=== PATIENT | male | born 1970 | race Caucasian/White ===

== ENCOUNTER 2016-09-02 16:00 | Outpatient (RCR) | payer OTHER ==
[~2016-09-02 16:00] MED LIST: AFRI0.056; ATEN50TA2 PO; BENA25CA2 PO; DIGO0.25 PO; ELIQ5TAB PO; HYDR50TAB PO; INVO300T PO; JANU100T PO; METF850T PO
== END 2016-09-06 ==
LOC: M OUTALCOH 16:00
PROVIDERS: ATTEND Psychiatry & Neurology Psychiatry
DX: F10.10 Alcohol abuse, uncomplicated (principal)

== ENCOUNTER 2016-09-30 16:00 | Outpatient (RCR) | payer OTHER | END 2016-10-04 | LOC: M OUTALCOH 16:00 | PROVIDERS: ATTEND Psychiatry & Neurology Psychiatry | DX: F10.10 Alcohol abuse, uncomplicated (principal) ==

== ENCOUNTER 2016-10-28 16:00 | Outpatient (RCR) | payer OTHER | END 2016-11-04 | LOC: M OUTALCOH 16:00 | PROVIDERS: ATTEND Psychiatry & Neurology Psychiatry | DX: F10.10 Alcohol abuse, uncomplicated (principal) ==

== ENCOUNTER 2016-11-25 16:00 | Outpatient (RCR) | payer OTHER | END 2016-12-04 | LOC: M OUTALCOH 16:00 | PROVIDERS: ATTEND Psychiatry & Neurology Psychiatry | DX: Z13.9 Encounter for screening, unspecified (principal); F10.10 Alcohol abuse, uncomplicated ==

== ENCOUNTER 2016-12-29 16:00 | Outpatient (RCR) | payer OTHER | END 2017-01-04 | LOC: M OUTALCOH 16:00 | PROVIDERS: ATTEND Psychiatry & Neurology Psychiatry | DX: Z13.9 Encounter for screening, unspecified (principal); F10.10 Alcohol abuse, uncomplicated ==

== ENCOUNTER → 2017-01-12 | Outpatient (CLI) | payer OTHER ==
[2017-01-12 17:25] LABS: ALBUMIN 4.1 GM/DL (3.2-5.2); ALBUMIN/GLOBULIN RATIO 1.03 (1.00-1.93); ALKALINE PHOSPHATASE 63 U/L (45-117); ALT/SGPT 66 U/L (12-78); ANION GAP 6 MEQ/L (8-16); AST/SGOT 32 U/L (15-37); BILIRUBIN,TOTAL 0.4 MG/DL (0.2-1.0); BLOOD UREA NITROGEN 10 MG/DL (7-18); CALCIUM LEVEL 9.4 MG/DL (8.5-10.1); CARBON DIOXIDE LEVEL 26 MEQ/L (21-32); CHLORIDE LEVEL 104 MEQ/L (98-107); CHOLESTEROL LEVEL 178 MG/DL (<200); CREATININE FOR GFR 0.72 MG/DL (0.70-1.30); GLOMERULAR FILTRATION RATE > 60.0 (>60); GLUCOSE, FASTING 182 MG/DL (70-105); POTASSIUM SERUM 4.2 MEQ/L (3.5-5.1); SODIUM LEVEL 136 MEQ/L (136-145); TOTAL PROTEIN 8.1 GM/DL (6.4-8.2); TRIGLYCERIDES LEVEL 261 MG/DL (<150)
== END ==
LOC: M WUC 12:33
PROVIDERS: ATTEND Nurse Practitioner Family
DX: E55.9 Vitamin D deficiency, unspecified (principal); E78.5 Hyperlipidemia, unspecified

== ENCOUNTER 2017-01-26 10:02 | Outpatient (RCR) | payer OTHER ==
[~2017-01-26 10:02] MED LIST changes: -METF850T PO; +METF850T4 PO
== END 2017-02-03 ==
LOC: M OUTALCOH 10:02
PROVIDERS: ATTEND Psychiatry & Neurology Psychiatry
DX: Z13.9 Encounter for screening, unspecified (principal); F10.10 Alcohol abuse, uncomplicated

== ENCOUNTER 2017-02-27 10:50 | Outpatient (RCR) | payer OTHER | END 2017-03-06 | LOC: M OUTALCOH 10:50 | PROVIDERS: ATTEND Psychiatry & Neurology Psychiatry | DX: F10.10 Alcohol abuse, uncomplicated (principal) ==

== ENCOUNTER 2017-04-03 16:00 | Outpatient (RCR) | payer OTHER | END 2017-04-06 | LOC: M OUTALCOH 16:00 | PROVIDERS: ATTEND Psychiatry & Neurology Psychiatry | DX: F10.10 Alcohol abuse, uncomplicated (principal) ==

== ENCOUNTER 2017-04-12 16:00 | Outpatient (RCR) | payer OTHER | END 2017-05-06 | LOC: M OUTALCOH 16:00 | PROVIDERS: ATTEND Psychiatry & Neurology Psychiatry | DX: F10.10 Alcohol abuse, uncomplicated (principal) ==

== ENCOUNTER → 2017-11-21 | Outpatient (REF) | payer OTHER | LOC: M LAB REF 19:15 | DX: J02.9 Acute pharyngitis, unspecified (principal) | CPT/HCPCS: 87081 ==

== ENCOUNTER → 2018-12-04 | Outpatient (CLI) | payer OTHER ==
--- NOTE | 2018-12-05 03:16 | REP ---
Clinical: Right ankle pain. Technique: AP, lateral, bilateral oblique views of the right ankle. Findings: Marked diffuse soft tissue swelling is appreciated. Corticated loose bodies inferior to the distal fibula and medial malleolus may represent old fracture fragments. No obvious definite acute fracture is appreciated however correlation is recommended. Ankle mortise appears intact. Impression: Diffuse marked swelling. Findings suggest old fracture fragments. A subtle acute nondisplaced fracture of the distal fibula cannot definitively be excluded based on oblique image (3 of 4). Electronically Signed by Rich Craven MD 12/05/2018 03:07 A
== END ==
LOC: M ADAMS 15:49
PROVIDERS: ATTEND Physician Assistant Medical
DX: M25.571 Pain in right ankle and joints of right foot (principal)

== ENCOUNTER → 2019-04-24 | Outpatient (CLI) | payer OTHER ==
--- NOTE | 2019-04-25 02:34 | REP ---
Clinical: Trauma. Technique: AP, lateral, bilateral oblique and sunrise views left knee . Findings: Marked anterior/prepatellar soft tissue swelling is appreciated with suspected prepatellar collection/hematoma. No obvious acute fracture or dislocation. No significant degenerative changes. Impression: Marked prepatellar soft tissue swelling. No obvious acute fracture. Electronically Signed by Rich Craven MD 04/25/2019 02:25 A
== END ==
LOC: M ADAMS 16:29
PROVIDERS: ATTEND Physician Assistant
DX: M25.462 Effusion, left knee (principal); S80.02XA Contusion of left knee, initial encounter; X58.XXXA Exposure to other specified factors, initial encounter; Y92.9 Unspecified place or not applicable

== ENCOUNTER 2019-12-21 12:04 | Inpatient (IN) | payer OTHER ==
[~2019-12-21] VITALS: Ht 180.3 cm; Wt 127.9 kg
[2019-12-21] MEDS: ASPIRIN 81 MG ENTERIC TAB PO SCH (09:00)
[2019-12-21] MEDS ORDERED: LOSA100T50 PO (12:14)
[2019-12-21] MEDS ORDERED: MELO7.5T35 PO (12:21)
[2019-12-21] MEDS ORDERED: GLYB25TA PO (12:21)
[2019-12-21 12:42] LABS: BASO # 0.1 10^3/uL (0.0-0.2); BASO % 1.3 % (0.0-1.0); EOS # 0.1 10^3/uL (0.0-0.5); HEMATOCRIT 47.3 % (42.0-52.0); HEMOGLOBIN 15.9 g/dl (13.5-17.5); LYMPH # 1.4 10^3/uL (1.5-5.0); LYMPH % 25.1 % (24.0-44.0); MEAN CORPUSCULAR HEMOGLOBIN 30.7 pg (27.0-33.0); MEAN CORPUSCULAR HGB CONC 33.6 g/dl (32.0-36.5); MEAN CORPUSCULAR VOLUME 91.3 fl (80.0-96.0); MONO # 0.9 10^3/uL (0.0-0.8); MONO % 16.4 % (0.0-5.0); PLATELET COUNT, AUTOMATED 190 10^3/uL (150-450); RED BLOOD COUNT 5.18 10^6/uL (4.30-6.10); WHITE BLOOD COUNT 5.5 10^3/uL (4.0-10.0)
[2019-12-21] MEDS: METOPROLOL 5 MG/5 ML VIAL IV SCH ×3 (12:42→12:53)
[2019-12-21] MEDS ORDERED: METOPROLOL TART 50 MG TAB PO ONE (13:00)
[2019-12-21 13:07] LABS: BLOOD UREA NITROGEN 8 MG/DL (7-18); CALCIUM LEVEL 10.3 MG/DL (8.5-10.1); CARBON DIOXIDE LEVEL 28 MEQ/L (21-32); CHLORIDE LEVEL 100 MEQ/L (98-107); CK-MB VALUE MASS 6.2 NG/ML (<3.6); CPK CREATINE PHOSPHOKINASE 169 U/L (39-308); CREATININE FOR GFR 0.84 MG/DL (0.70-1.30); GLOMERULAR FILTRATION RATE > 60.0 (>60); GLUCOSE, FASTING 280 MG/DL (70-100); MB/CK RELATIVE INDEX 3.67 (< OR =4); POTASSIUM SERUM 3.9 MEQ/L (3.5-5.1); SODIUM LEVEL 138 MEQ/L (136-145)
--- NOTE | 2019-12-21 13:11 | REP ---
Clinical: Chest pain . Comparison: 05/17/2016 . Findings: The mediastinum and cardiac silhouette are stable and within normal limits for portable technique. The lung andrade are clear without acute consolidation, effusion, or pneumothorax. Skeletal structures are intact. Impression: No focal consolidation or effusion. Electronically Signed by Rich Craven MD 12/21/2019 01:03 P
[2019-12-21 13:32] LABS: ETHYL ALCOHOL (ETHANOL) < 0.003 % (0.000-0.010)
[2019-12-21 13:39] LABS: MAGNESIUM LEVEL 1.5 MG/DL (1.8-2.4)
[2019-12-21] MEDS ORDERED: MAG SULF 1GM/100ML (MAG RUN) 1 GM in IV 1 EA IV ONE ×2 (13:45→14:45)
[2019-12-21] MEDS ORDERED: APIXABAN 5 MG TAB (ELIQUIS) PO ONE (14:00)
[2019-12-21] MEDS ORDERED: diltiaZEM 125 MG in NS 100 ML IV SCH (14:00)
[2019-12-21] MEDS ORDERED: DIPH25CA32 PO (14:36)
[2019-12-21] MEDS ORDERED: ELIQ5TAB PO (14:36)
[2019-12-21] MEDS ORDERED: ATEN50TA2 PO (14:36)
[2019-12-21] MEDS ORDERED: 12 H0.056 (14:38)
[2019-12-21 15:25] LABS: CK-MB VALUE MASS 5.1 NG/ML (<3.6); MB/CK RELATIVE INDEX 3.4 (< OR =4); TROPONIN I 2.23 NG/ML (< 0.10)
[2019-12-21] MEDS ORDERED: GLUCOSE 4GM CHEW TABLET PO PRN (16:00)
[2019-12-21] MEDS ORDERED: GLUCAGON INJ 1MG VIAL SC PRN (16:00)
[2019-12-21] MEDS ORDERED: DEXTROSE 50% 50 ML SYRINGE IV PRN (16:00)
[2019-12-21] MEDS ORDERED: AMIODARONE HCL 150 MG in IV 1 EA IV ONE (16:00)
[2019-12-21] MEDS ORDERED: AMIODARONE HCL 360 MG in IV 1 EA IV SCH (16:30)
[2019-12-21] MEDS ORDERED: diphenhydrAMINE 50MG CAP PO PRN (16:45)
[2019-12-21 17:05] VITALS: BP 152/94
--- NOTE | 2019-12-21 17:10 | HPE ---
DATE OF ADMISSION: 12/12/2019 CHIEF COMPLAINT: Palpitations. HISTORY OF PRESENT ILLNESS: This is a 49-year-old obese male with body mass index (BMI) of 39.7, obstructive sleep apnea on continuous positive airway pressure (CPAP), metabolic syndrome with hypertension, diabetes with prior history of atrial fibrillation, lost to followup and not compliant with his medications, presented after waking up at 02:30 this morning not feeling "good," accompanied with feeling sick to his stomach, nausea and vomiting times three. The patient describes a soreness in his chest from vomiting. He denied any lightheadedness, dizziness, difficulty ambulating, but did complain of palpitations now and again. He usually misses his evening doses occasionally about once or twice a week and did not take it today. He had stopped drinking energy drinks but does have Mountain Dews occasionally. He drinks caffeinated iced tea sometimes. After the four episodes of vomiting, the patient went back to bed but since his symptoms were persistent, it prompted him to come this morning. At around 09:00 to 10:00 a.m., things got a little bit worse. He then finished up everything he needed to do at home and decided to come at noontime to the emergency room. In the emergency room (ER), he was found to be in atrial flutter with rapid ventricular rate of 141 with peak rate of about 160. The patient was given 50 mg of metoprolol times one with no improvement. He was given 5 mg IV metoprolol every five minutes with no improvement. At 01:00 o'clock, the patient was given diltiazem 20 mg IV bolus with no improvement and was then given 25 mg stat and started on a Cardizem drip. The patient continues to have a rate of 130-140. Dr. Mac, chip mixing machine operator on-call, was consulted by Dr. Carty, emergency room physician, who recommended that the patient receive amiodarone. The patient did receive another 15 mg IV diltiazem bolus despite being on a drip with no improvement. Systolic blood pressure remains high at 154/83 with presenting blood pressure of 225/135. The patient denied any shortness of breath. No near syncopal episodes. The patient has been noncompliant with his medications. Despite having a troponin increase from 1.9 to 2.23, the patient remained chest pain free. EKG did not show any ST elevations and the patient decided to stay at [facility] for rate control and further treatment. He was found to have a slightly low magnesium of 1.5 which was subsequently supplemented. Chest x-ray showed no acute cardiopulmonary process. The patient's COVID-19 PCR is still pending. He remains in the emergency room. Ethyl alcohol level is less than 0.03. PAST MEDICAL HISTORY: 1. Obesity, body mass index (BMI) of 39.7. 2. Obstructive sleep apnea on continuous positive airway pressure (CPAP). 3. Hypertension. 4. Diabetes. 5. Prior history of atrial fibrillation with rapid ventricular response (RVR). 6. Medical noncompliance. ALLERGIES: NAPROSYN. PAST SURGICAL HISTORY: 1. Carpal tunnel repair. 2. Back surgery due to herniated disc. SOCIAL HISTORY: Previously smoked cigarettes, a pack a day, quit about 15 years ago. He still drinks beer, two to about five beers about 2-3 times a week. 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 HOME MEDICATIONS: - Eliquis 5 mg twice a day - atenolol 50 mg twice a day - Benadryl 50 mg every six hours as needed for allergies - glyburide one tablet by mouth daily - losartan 100 mg daily - meloxicam one tablet daily - metformin 850 twice a day - oxymetazoline one spray daily as needed for allergies - Januvia 100 mg daily - Invokana 300 mg daily REVIEW OF SYSTEMS: Per history of present illness (HPI), 12-point system otherwise negative. FAMILY HISTORY: The patient's mother age 58 with lung cancer. The patient had been a heavy smoker. Father at the age of 72 last year with coronary artery disease (CAD), myocardial infarction ([place]), and diabetes. One sister a year older than he is, unknown medical problems. The patient has not spoken to her since their father . PHYSICAL EXAMINATION: Temperature 97.4, pulse 133, respiratory rate 17, blood pressure 161/90, 95% on room air. Generally, the patient is an obese male. The patient is awake, alert, and oriented times three. No facial asymmetry. Tongue is midline. No cyanosis. No icterus or jaundice. Unable to assess for jugular venous distention (JVD), thick neck. Lungs are clear to auscultation. No wheezing, rales, or rhonchi. Heart is tachycardic. Heart: S1, S2, irregularly irregular. No murmurs noted. Abdomen is obese, soft, nontender, nondistended. Positive bowel sounds times four quadrants. Extremities: No clubbing, cyanosis, or any pitting edema. EKG: Atrial flutter, ventricular rate of 141, nonspecific ST/T wave changes. LABORATORY DATA: White count 5.5, hemoglobin 15, hematocrit 47, platelet count 190, 55% neutrophils. TSH 2.05. Sodium 138, potassium 3.9, chloride 100, bicarbonate 28, BUN 8, creatinine 0.84, glucose 280, calcium 10.3, magnesium of 1.5, total CK 169, MB fraction 6.2, relative index 3.67, troponin 1.90, repeat troponin is 2.23, MB fraction is 5.1, total CK of 150. IMAGING STUDIES: Chest x-ray: No acute cardiopulmonary process. No focal consolidation or effusion. ASSESSMENT AND PLAN: This is a 49-year-old obese male with body mass index (BMI) of 39.7, obstructive sleep apnea (BILLY) on continuous positive airway pressure (CPAP), hypertension, diabetes, carpal tunnel repair, atrial fibrillation, noncompliance with his medications, presents to the emergency room with complaints of nausea, vomiting, palpitations, found to be in atrial flutter with rapid ventricular response. The patient had received multiple doses of diltiazem, metoprolol with no improvement, and currently on amiodarone. 1. Atrial flutter with rapid ventricular response. The patient will be admitted to the telemetry unit, placed on amiodarone drip for the next 24 hours. Cardiology has been consulted and a stat echocardiogram has been ordered. The patient's cardiac markers are consistent with tachycardia-induced injury with a type 2 [id number] myocardial infarction which is demand mediated. The patient will be checked with serial cardiac markers every six hours. Monitor for any ischemic symptoms. We will defer to cardiology if the patient requires transfer to [place] for coronary angiogram if suspicion for coronary artery disease and acute infarct with acute coronary syndrome remains high. 2. Hypomagnesemia, has been repleted. Telemetry will be continued to monitor for nonsustained ventricular tachycardia or premature ventricular contractions (PVCs). 3. Hypertensive urgency. The patient's blood pressure improved on metoprolol, IV metoprolol, as well as diltiazem. He will be resumed on his home dose of lisinopril. 4. Diabetes. The patient is on a consistent-carbohydrate diet, two-gram sodium diet with fingersticks every six hours, and hypoglycemic protocol. His oral hyperglycemic medications will be held for now. 5. Deep vein thrombosis (DVT) prophylaxis, on chronic Eliquis. 6. Code status. Full code. 7. Obstructive sleep apnea. Resume on home CPAP. ROOSE[place]ELT
[2019-12-21] MEDS: HumaLOG INSULIN (NovoLOG) PER UNIT SC SCH (17:21)
[2019-12-21] MEDS: LOSARTAN 50MG TABLET PO SCH (17:22)
[2019-12-21] MEDS ORDERED: SLF 3 ML SYR IV PRN (18:00)
[2019-12-21 18:06] LABS: IONIZED CALCIUM 4.6 MG/DL (4.5-5.3)
[2019-12-21 18:46] LABS: CK-MB VALUE MASS 4.2 NG/ML (<3.6); MAGNESIUM LEVEL 1.8 MG/DL (1.8-2.4); MB/CK RELATIVE INDEX 3.23 (< OR =4); TROPONIN I 2.73 NG/ML (< 0.10)
[2019-12-21] MEDS ORDERED: NITROGLYCERIN 0.3 MG SUBL TAB SL PRN (19:00)
[2019-12-21 20:00] VITALS: BP 182/102
[2019-12-21] MEDS ORDERED: METOPROLOL 5 MG/5 ML VIAL IV STA ×2 (20:34→23:42)
[2019-12-21] MEDS ORDERED: HumaLOG INSULIN (NovoLOG) PER UNIT SC SCH (21:00)
[2019-12-21] MEDS ORDERED: ATORVASTATIN 20 MG TAB PO SCH (21:00)
[2019-12-21] MEDS ORDERED: APIXABAN 5 MG TAB (ELIQUIS) PO SCH (21:00)
[2019-12-21 21:45] VITALS: BP 158/98
[2019-12-21] MEDS: SLF 3 ML SYR IV SCH (22:05)
[2019-12-21] MEDS: AMIODARONE HCL 360 MG in IV 1 EA IV SCH (23:58)
[2019-12-21 23:59] LABS: IONIZED CALCIUM 4.6 MG/DL (4.5-5.3)
[2019-12-22] VITALS (7 sets, daily range): BP systolic 140–178; BP diastolic 90–98
[2019-12-22] MEDS: METOPROLOL TART 50 MG TAB PO SCH ×2 (00:09→05:59)
[2019-12-22 00:29] LABS: BLOOD UREA NITROGEN 11 MG/DL (7-18); CARBON DIOXIDE LEVEL 28 MEQ/L (21-32); CHLORIDE LEVEL 100 MEQ/L (98-107); CPK CREATINE PHOSPHOKINASE 118 U/L (39-308); CREATININE FOR GFR 0.73 MG/DL (0.70-1.30); GLOMERULAR FILTRATION RATE > 60.0 (>60); GLUCOSE, FASTING 212 MG/DL (70-100); MAGNESIUM LEVEL 1.7 MG/DL (1.8-2.4); MB/CK RELATIVE INDEX 2.54 (< OR =4); PHOSPHORUS LEVEL 3.5 MG/DL (2.5-4.9); POTASSIUM SERUM 3.6 MEQ/L (3.5-5.1); SODIUM LEVEL 137 MEQ/L (136-145); TROPONIN I 2.41 NG/ML (< 0.10)
[2019-12-22] MEDS ORDERED: MAG SULF 1GM/100ML (MAG RUN) 1 GM in IV 1 EA IV ONE (01:00)
[2019-12-22] MEDS ORDERED: FUROSEMIDE 20MG/2ML VIAL (J1940) IV ONE (01:15)
--- NOTE | 2019-12-22 04:44 | IPNPDOC ---
Text Note Date of Service The patient was seen on 12/22/19. NOTE Was called by nursing with c/f persistent Aflutter with RVR despite amiodarone gtt and metop 50Q6. I called Dr. Mac whom on our discussion recommended giving dilt 10 IV x 2 while continuing the amio gtt and metop 50Q6, as well as stopping his eliquis and to start heparin gtt in 6 hours without a bolus with plan for likely transfer to [place] for catheterization. VS,Fishbone, I+O VS, Fishbone, I+O Laboratory Tests 12/21/19 12:24 12/21/19 23:49 Vital Signs Date Time Temp Pulse Resp B/P (MAP) Pulse Ox O2 Delivery O2 Flow Rate FiO2 12/22/19 01:45 156/96 (116) 12/22/19 00:09 142 12/22/19 00:00 97.9 18 97 Room Air I&O- Last 24 Hours up to 6 AM 12/22/19 06:00 Intake Total 622.5 ml Output Total 1500 ml Balance -877.5 ml ROSETTA MITCHELL MD December 22, 2019 04:44
[2019-12-22] MEDS: SLF 3 ML SYR IV SCH (05:59)
[2019-12-22 06:05] LABS: HEMATOCRIT 46.4 % (42.0-52.0); HEMOGLOBIN 16.1 g/dl (13.5-17.5); MEAN CORPUSCULAR HEMOGLOBIN 31.8 pg (27.0-33.0); MEAN CORPUSCULAR HGB CONC 34.7 g/dl (32.0-36.5); MEAN CORPUSCULAR VOLUME 91.5 fl (80.0-96.0); PLATELET COUNT, AUTOMATED 170 10^3/uL (150-450); RED BLOOD COUNT 5.07 10^6/uL (4.30-6.10); WHITE BLOOD COUNT 5.9 10^3/uL (4.0-10.0)
[2019-12-22 06:14] LABS: HEMOGLOBIN A1c 8.1 %
[2019-12-22 06:28] LABS: BLOOD UREA NITROGEN 10 MG/DL (7-18); CALCIUM LEVEL 8.6 MG/DL (8.5-10.1); CARBON DIOXIDE LEVEL 28 MEQ/L (21-32); CHLORIDE LEVEL 97 MEQ/L (98-107); CHOLESTEROL LEVEL 225 MG/DL (<200); CHOLESTEROL RISK RATIO 5.487 (<5); CREATININE FOR GFR 0.68 MG/DL (0.70-1.30); GLOMERULAR FILTRATION RATE > 60.0 (>60); GLUCOSE, FASTING 225 MG/DL (70-100); HDL CHOLESTEROL 41 MG/DL (>40); LDL CHOLESTEROL 133 MG/DL (<100); MAGNESIUM LEVEL 1.8 MG/DL (1.8-2.4); NON-HDL-C 184 MG/DL; POTASSIUM SERUM 3.3 MEQ/L (3.5-5.1); SODIUM LEVEL 133 MEQ/L (136-145); TRIGLYCERIDES LEVEL 254 MG/DL (<150)
[2019-12-22 06:29] LABS: CK-MB VALUE MASS 2.2 NG/ML (<3.6); MB/CK RELATIVE INDEX 1.95 (< OR =4)
--- NOTE | 2019-12-22 06:34 | ECGEPIP ---
[facility] - ED Test Date: 2019-12-21 Pat Name: LEANNE RAMIREZ Department: Room: - Gender: Male Group Work Program Director: nitin jara : 1970 Requested By: Jose Zacarias Order Number: [id number] Reading MD: Cee Flores Measurements Intervals [place] Rate: 141 P: MN: 0 QRS: 17 QRSD: 80 T: 120 QT: 183 QTc: 280 Interpretive Statements ATRIAL FLUTTER/TACHYCARDIA WITH RAPID VENTRICULAR RESPONSE NONSPECIFIC ST & T-WAVE ABNORMALITY DELAYED R WAVE PROGRESSION CW 08/20/19 RATE DECREASED RHYTHM CHANGE NONSPECIFIC ST T WAVE CHANGES Electronically Signed on 12-22-2019 6:33:49 EDT by Cee Flores
--- NOTE | 2019-12-22 07:08 | ECHO ---
DATE OF PROCEDURE: 12/21/2019 DATE OF : 1970 REFERRING PROVIDER: Dr. Barfield REASON FOR THE STUDY: Atrial fibrillation, abnormal troponin. 2-D MEASUREMENTS: IVS: 1.2 cm LV: 4.5 cm LVPW: 1.3 cm LA: 3.9 cm Aorta: 3.4 cm DOPPLER MEASUREMENTS: Peak velocity across the aortic valve: 1.2 m/sec Peak velocity across the LVOT: 1.16 m/sec 2-D COMMENTS: 1. Normal left ventricular size with mildly increased left ventricular wall thickness. Left ventricular systolic function is normal, estimated at 50-55%. 2 Subjectively, the left atrium appeared to be mildly enlarged. The right atrium also appeared to be mildly enlarged. Normal right ventricle. 3. The atrial septum appeared to be normal without evidence of defect or shunt. 4. Normal aortic root. 5. Trace pericardial effusion noted, no evidence of cardiac tamponade. 6. Aortic valve, mitral valve, tricuspid valve, and pulmonic valve appeared to be normal. The proximal pulmonary artery branches were not well visualized. 7. The inferior vena cava was not well visualized. DOPPLER: No significant valvular abnormalities detected. Assessment of the left ventricular diastolic function was limited in view of for the underlying arrhythmias. IMPRESSION: 1. Low normal global left ventricular systolic function. Assessment of the left ventricular diastolic function was limited in view of the underlying arrhythmias. 2. Isolated mildly dilated left atrium, no significant mitral regurgitation detected. 3. Trace pericardial effusion, no evidence of cardiac tamponade. 4. No significant valvular heart disease detected.
[2019-12-22] MEDS: HumaLOG INSULIN (NovoLOG) PER UNIT SC SCH (07:30)
[2019-12-22] MEDS: LOSARTAN 50MG TABLET PO SCH (08:38)
[2019-12-22] MEDS: ASPIRIN 81 MG ENTERIC TAB PO SCH (08:38)
[2019-12-22] MEDS ORDERED: HEPA1INJ IV (08:52)
[2019-12-22] MEDS ORDERED: ATOR1TAB21 PO (08:52)
[2019-12-22] MEDS ORDERED: [UNRECOGNIZED DRUG - CODE] IV (08:52)
[2019-12-22] MEDS ORDERED: SITagliptin 50 MG TAB (JANUVIA) PO SCH (09:00)
[2019-12-22] MEDS: AMIODARONE HCL 360 MG in IV 1 EA IV SCH (09:30)
[2019-12-22] MEDS ORDERED: HEPARIN SOD (PORCINE) 5000UNITS/ML VIAL (J1644 PER 1000UNITS) IV PRN (10:00)
[2019-12-22] MEDS ORDERED: HEPARIN DRIP 25,000 UNITS in IV 1 EA IV SCH (10:00)
--- NOTE | 2019-12-22 12:18 | DSES ---
DATE OF ADMISSION: 12/21/2019 DATE OF DISCHARGE: 12/22/2019 REASON FOR TRANSFER TO [facility]: Intractable atrophic atrial flutter with rapid ventricular rate, positive troponin level for ablation and possible coronary angiogram. PRIMARY DISCHARGE DIAGNOSES: 1. Atrial flutter with rapid ventricular rate, intractable. 2. Positive troponin secondary to type 2 non-ST elevation, myocardial infarction due to demand mediated ischemia. 3. Obstructive sleep apnea on CPAP. 4. Hypertension. 5. Diabetes. 6. Obesity with body mass index (39.7) 7. Chronic atrial fibrillation. 8. Medical noncompliance. 9. Metabolic syndrome. DISCHARGE MEDICATION: - Intravenous heparin drip - amiodarone drip - atorvastatin 40 nightly DIET: Nothing by mouth. Patient is on a consistent carbohydrate diet. Hypoglycemic protocol. HOSPITAL COURSE: This is a 49-year-old obese male with BMI of 39.7, obstructive sleep apnea on CPAP, metabolic syndrome with hypertension, diabetes, and chronic atrial fibrillation not compliant with his medications and admits to missing his medications about twice a week. Had not taken his medications and woke up at 2:30 in the morning complaining of not feeling well with emesis times three. Patient felt some palpitations without lightheadedness or dizziness and chest pressure which he describes as tightness across the sternal area and epigastrium. He sent back to sleep and "had to do things between 9 to noon" and presented to the emergency room at noon, driving himself in his truck. Patient was found to have atrial flutter with rapid ventricular response of 130 to 160. He was given a total of 80 mg of IV Cardizem, 50 mg orally of metoprolol, 15 mg of IV metoprolol without improvement. Hospitalist was asked to admit the patient and a stat echo was performed. Patient was placed on amiodarone drip 1, 2, and [address] Wall Crane Operator [address] Mac was consulted and recommended stat echocardiogram. The patient was found to have a troponin leak without any ST elevation. He was started on aspirin, continued on his Eliquis. He started Lipitor with every 6-hour cardiac marker checked. Overnight patient had no improvement after completing the third bag of amiodarone. Systolic pressure on presentation when patient complained of severe chest pain was 225/136, improved to 148/[address] Mac, hand heel seat fitter phone call was called at 4:40 in the morning and he recommended giving more diltiazem and transferring to [place] for ablation for intractable atrial flutter with RVR as well as possible coronary angiogram in light of patient's risk factors for coronary artery disease, being male gender, hypertension, diabetes, strong family history of coronary artery disease, hyperlipidemia and high psychosocial stress. PHYSICAL EXAMINATION: (On discharge) Temperature 96.5, pulse 133 irregular, atrial flutter on telemetry. Respiratory rate 22, blood pressure 148/90, 97% on room air. Generally, patient is awake, alert, oriented times three answering questions appropriately. Anicteric. No cyanosis. No respiratory distress. No jugular venous distention (JVD) or thyromegaly. No cervical lymphadenopathy. Dry mucous membranes. Lungs are clear to auscultation. No wheezing, rales or rhonchi. Inspiratory or expiratory ratio 1:3. Heart: Irregularly, irregular and tachycardic. No murmurs, rubs or gallops. Abdomen: Obese, soft, nontender, nondistended. Extremities: No cyanosis, clubbing or pitting edema. LABORATORY DATA: White count 5.9, hemoglobin 16, hematocrit 46, platelet count 170, PTT 35.1. Sodium 132, potassium 3.3, chloride 97, bicarbonate 28, BUN 10, creatinine 0.68, glucose 225, A1c 8.1, troponin 2.0, MB fraction 2.2, total CK 113, relative index 1.95, triglycerides 254, total cholesterol 225, LDL 133, non-HDL 184, total HCL 41. TSH 2.05. Respiratory panel negative. COVID-19 negative. Chest x-ray on 12/21/2019: No focal consolidation or effusion. Time spent on hospital discharge: 50 minutes. PLEASE FAX TO [facility]. GABRIELAD
--- NOTE | 2019-12-23 00:03 | ECGEPIP ---
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
== END 2019-12-22 09:33 | disposition short-term general hospital (02) | DRG 282 ==
LOC: M ED 12:04 → M ED INP 15:49 → ENRESERV 15:56 → M PCU 17:06
PROVIDERS: ADMIT General Practice; ATTEND General Practice
DX: I48.92 Unspecified atrial flutter (principal); I21.4 Non-ST elevation (NSTEMI) myocardial infarction; G47.33 Obstructive sleep apnea (adult) (pediatric); I10 Essential (primary) hypertension; E55.9 Vitamin D deficiency, unspecified; E66.9 Obesity, unspecified; Z68.39 Body mass index [BMI] 39.0-39.9, adult; Z91.19 Patient's noncompliance with other medical treatment and regimen; E88.81 Metabolic syndrome and other insulin resistance; I48.20 Chronic atrial fibrillation, unspecified; E78.5 Hyperlipidemia, unspecified; I16.0 Hypertensive urgency; E83.42 Hypomagnesemia; Z79.01 Long term (current) use of anticoagulants; Z88.8 Allergy status to other drugs, medicaments and biological substances; Z87.891 Personal history of nicotine dependence

== ENCOUNTER → 2020-01-10 | Outpatient (REF) | payer OTHER ==
[~2020-01-10] MED LIST changes: +12 H0.056; +ATOR1TAB21 PO; +DIPH25CA32 PO; +GLYB25TA PO; +HEPA1INJ IV; +LOSA100T50 PO; +MELO7.5T35 PO; +[UNRECOGNIZED DRUG - CODE] IV
[2020-01-10 13:46] LABS: HEMATOCRIT 45.1 % (42.0-52.0); HEMOGLOBIN 15.1 g/dl (13.5-17.5); MEAN CORPUSCULAR HEMOGLOBIN 31.2 pg (27.0-33.0); MEAN CORPUSCULAR HGB CONC 33.5 g/dl (32.0-36.5); MEAN CORPUSCULAR VOLUME 93.2 fl (80.0-96.0); PLATELET COUNT, AUTOMATED 196 10^3/uL (150-450); RED BLOOD COUNT 4.84 10^6/uL (4.30-6.10); WHITE BLOOD COUNT 6.1 10^3/uL (4.0-10.0)
[2020-01-10 14:32] LABS: BLOOD UREA NITROGEN 7 MG/DL (7-18); CALCIUM LEVEL 9.4 MG/DL (8.5-10.1); CARBON DIOXIDE LEVEL 31 MEQ/L (21-32); CHLORIDE LEVEL 98 MEQ/L (98-107); CREATININE FOR GFR 0.72 MG/DL (0.70-1.30); GLOMERULAR FILTRATION RATE > 60.0 (>60); GLUCOSE, FASTING 140 MG/DL (70-100); POTASSIUM SERUM 4.4 MEQ/L (3.5-5.1); SODIUM LEVEL 137 MEQ/L (136-145)
== END ==
LOC: M SFHCPLAZ 09:53
PROVIDERS: ATTEND Family Medicine
DX: I48.0 Paroxysmal atrial fibrillation (principal); Z79.01 Long term (current) use of anticoagulants; E11.9 Type 2 diabetes mellitus without complications; I10 Essential (primary) hypertension

== ENCOUNTER → 2020-04-10 | Outpatient (CLI) | payer OTHER ==
[2020-04-10 19:33] LABS: HEMATOCRIT 45.4 % (42.0-52.0); HEMOGLOBIN 15.2 g/dl (13.5-17.5); MEAN CORPUSCULAR HEMOGLOBIN 31.9 pg (27.0-33.0); MEAN CORPUSCULAR HGB CONC 33.5 g/dl (32.0-36.5); MEAN CORPUSCULAR VOLUME 95.4 fl (80.0-96.0); PLATELET COUNT, AUTOMATED 160 10^3/uL (150-450); RED BLOOD COUNT 4.76 10^6/uL (4.30-6.10); WHITE BLOOD COUNT 4.7 10^3/uL (4.0-10.0)
[2020-04-10 19:56] LABS: BLOOD UREA NITROGEN 10 MG/DL (7-18); CALCIUM LEVEL 9.6 MG/DL (8.5-10.1); CARBON DIOXIDE LEVEL 30 MEQ/L (21-32); CHLORIDE LEVEL 99 MEQ/L (98-107); GLOMERULAR FILTRATION RATE > 60.0 (>60); GLUCOSE, FASTING 324 MG/DL (70-100); POTASSIUM SERUM 4.1 MEQ/L (3.5-5.1); SODIUM LEVEL 135 MEQ/L (136-145)
[2020-04-10 19:59] LABS: CREATININE, URINE 28.6 MG/DL; MAU/CREAT RATIO 818.1 MCG/MG (0.0-30.0)
[2020-04-10 20:05] LABS: HEMOGLOBIN A1c 9.3 %
== END ==
LOC: M WUC 15:30
PROVIDERS: ATTEND Family Medicine
DX: E11.9 Type 2 diabetes mellitus without complications (principal); I10 Essential (primary) hypertension

== ENCOUNTER 2020-12-09 17:15 | Emergency (ER) | payer OTHER ==
[~2020-12-09] VITALS: Ht 180.3 cm; Wt 137.5 kg
[~2020-12-09 17:15] MED LIST changes: +GLYB2.5T7 PO; -GLYB25TA PO
[2020-12-09] MEDS ORDERED: AMLO1TAB24 (17:28)
[2020-12-09] MEDS ORDERED: INVO300T (17:28)
[2020-12-09] MEDS ORDERED: ATEN50TA2 (17:28)
[2020-12-09] MEDS ORDERED: JANU100T (17:28)
[2020-12-09] MEDS ORDERED: GLYB2.5T7 (17:28)
[2020-12-09] MEDS ORDERED: METF-838 (17:28)
[2020-12-09] MEDS ORDERED: ELIQ5TAB (17:28)
[2020-12-09] MEDS ORDERED: LOSA100T50 (17:28)
[2020-12-09] MEDS ORDERED: APAP325T4 PO (17:29)
[2020-12-09 20:19] LABS: BASO # 0.1 10^3/uL (0.0-0.2); BASO % 1.3 % (0.0-1.0); EOS # 0.2 10^3/uL (0.0-0.5); EOS % 2.5 % (0.0-3.0); HEMATOCRIT 42.1 % (42.0-52.0); HEMOGLOBIN 13.7 g/dl (13.5-17.5); LYMPH # 1.7 10^3/uL (1.5-5.0); LYMPH % 24.5 % (24.0-44.0); MEAN CORPUSCULAR HEMOGLOBIN 28.8 pg (27.0-33.0); MEAN CORPUSCULAR HGB CONC 32.5 g/dl (32.0-36.5); MEAN CORPUSCULAR VOLUME 88.4 fl (80.0-96.0); MONO # 1.2 10^3/uL (0.0-0.8); MONO % 17.3 % (2.0-8.0); NEUTROPHILS # 3.7 10^3/uL (1.5-8.5); PLATELET COUNT, AUTOMATED 217 10^3/uL (150-450); RED BLOOD COUNT 4.76 10^6/uL (4.30-6.10); WHITE BLOOD COUNT 6.8 10^3/uL (4.0-10.0)
[2020-12-09 20:27] LABS: INR 1.23; PROTHROMBIN TIME 15.8 SECONDS (12.5-14.3)
[2020-12-09 20:52] LABS: ALBUMIN 3.5 GM/DL (3.2-5.2); BILIRUBIN,DIRECT 0.6 MG/DL (0.0-0.2); BILIRUBIN,TOTAL 1.5 MG/DL (0.2-1.0); TOTAL PROTEIN 9.2 GM/DL (6.4-8.2)
--- NOTE | 2020-12-09 20:58 | REPVR ---
PROCEDURE INFORMATION: Exam: XR Right Femur Exam date and time: 12/09/2020 8:05 PM Age: 50 years old Clinical indication: Pain; Thigh; Right; Additional info: Trauma TECHNIQUE: Imaging protocol: XR Right femur. Views: 2 views. COMPARISON: DX KNEE COMPLETE 04/24/2019 4:20 PM FINDINGS: Bones/joints: Normal alignment. Joint spaces are unremarkable. No acute fracture. Soft tissues: Unremarkable. IMPRESSION: No acute findings. Electronically signed by: Octavio Lui On 12/09/2020 20:58:09 PM
[2020-12-09 21:29] VITALS: BP 169/87
== END 2020-12-09 21:32 | disposition home or self-care (01) ==
LOC: M ED 17:15
DX: S63.92XA Sprain of unspecified part of left wrist and hand, initial encounter (principal); S60.222A Contusion of left hand, initial encounter; S40.022A Contusion of left upper arm, initial encounter; S20.221A Contusion of right back wall of thorax, initial encounter; S70.01XA Contusion of right hip, initial encounter; R94.5 Abnormal results of liver function studies; W10.9XXA Fall (on) (from) unspecified stairs and steps, initial encounter; Y92.009 Unspecified place in unspecified non-institutional (private) residence as the place of occurrence of the external cause; Y93.9 Activity, unspecified; Y99.9 Unspecified external cause status; I48.91 Unspecified atrial fibrillation; I10 Essential (primary) hypertension; E11.40 Type 2 diabetes mellitus with diabetic neuropathy, unspecified; K21.9 Gastro-esophageal reflux disease without esophagitis; Z88.6 Allergy status to analgesic agent

== ENCOUNTER → 2020-12-16 | Outpatient (REF) | payer OTHER ==
[~2020-12-16] MED LIST changes: +AMLO1TAB24; +APAP325T4 PO; +ATEN50TA2; +ELIQ5TAB; +GLYB2.5T7; +INVO300T; +JANU100T; +LOSA100T50; +METF-838
== END ==
LOC: M SFHCPLAZ 11:41
PROVIDERS: ATTEND Family Medicine
DX: E80.6 Other disorders of bilirubin metabolism (principal); E11.9 Type 2 diabetes mellitus without complications

== ENCOUNTER → 2021-01-12 | Outpatient (CLI) | payer OTHER ==
[2021-01-12 21:02] LABS: ALBUMIN 3.4 GM/DL (3.2-5.2); BILIRUBIN,DIRECT 0.5 MG/DL (0.0-0.2); TOTAL PROTEIN 8.6 GM/DL (6.4-8.2)
== END ==
LOC: M WUC 15:38
PROVIDERS: ATTEND Physician Assistant
DX: R94.5 Abnormal results of liver function studies (principal)

== ENCOUNTER → 2021-01-14 | Outpatient (REF) | payer OTHER ==
[2021-01-14 18:33] LABS: BLOOD UREA NITROGEN 4 MG/DL (7-18); CALCIUM LEVEL 9.1 MG/DL (8.5-10.1); CARBON DIOXIDE LEVEL 26 MEQ/L (21-32); CHLORIDE LEVEL 100 MEQ/L (98-107); CHOLESTEROL LEVEL 146 MG/DL (<200); CHOLESTEROL RISK RATIO 4.562 (<5); CREATININE FOR GFR 0.68 MG/DL (0.70-1.30); GLOMERULAR FILTRATION RATE > 60.0 (>56); GLUCOSE, FASTING 194 MG/DL (70-100); HDL CHOLESTEROL 32 MG/DL (>40); LDL CHOLESTEROL 92 MG/DL (<100); NON-HDL-C 114 MG/DL; POTASSIUM SERUM 3.9 MEQ/L (3.5-5.1); SODIUM LEVEL 136 MEQ/L (136-145); TRIGLYCERIDES LEVEL 109 MG/DL (<150)
[2021-01-14 18:42] LABS: CREATININE, URINE 25.9 MG/DL; MALB URINE SIEMENS 48.6 MG/L; MAU/CREAT RATIO 187.6 MCG/MG (0.0-30.0)
[2021-01-14 20:12] LABS: HEMOGLOBIN A1c 7.8 %
== END ==
LOC: M SFHCPLAZ 14:35
DX: E11.9 Type 2 diabetes mellitus without complications (principal); I10 Essential (primary) hypertension

== ENCOUNTER 2021-02-16 19:57 | Emergency (ER) | payer OTHER ==
[~2021-02-16] VITALS: Ht 180.3 cm; Wt 144.7 kg
[~2021-02-16 19:57] MED LIST changes: -AMLO1TAB24; +AMLO1TAB24 PO; -ATEN50TA2; -ELIQ5TAB; -INVO300T; -METF-838; +METF-838 PO
[2021-02-16 19:58] VITALS: BP 180/86
== END 2021-02-16 20:30 | disposition left against medical advice (07) ==
LOC: M ED 19:57
DX: Z53.21 Procedure and treatment not carried out due to patient leaving prior to being seen by health care provider (principal)

== ENCOUNTER → 2021-03-17 | Outpatient (REF) | payer OTHER | LOC: M SFHCPLAZ 11:47 | PROVIDERS: ATTEND Family Medicine | DX: E11.9 Type 2 diabetes mellitus without complications (principal); E87.70 Fluid overload, unspecified ==

== ENCOUNTER → 2021-03-17 | Outpatient (CLI) | payer OTHER ==
[2021-03-17 17:55] LABS: CREATININE,RANDOM URINE < 13.0 MG/DL; TOTAL PROTEIN,RANDOM URINE 10.1 MG/DL (0.0-12.0)
[2021-03-17 17:57] LABS: ALBUMIN 3.4 GM/DL (3.2-5.2); ALT/SGPT 63 U/L (12-78); BILIRUBIN,TOTAL 0.7 MG/DL (0.2-1.0); BLOOD UREA NITROGEN 8 MG/DL (7-18); CALCIUM LEVEL 9.7 MG/DL (8.5-10.1); CARBON DIOXIDE LEVEL 24 MEQ/L (21-32); CHLORIDE LEVEL 96 MEQ/L (98-107); CREATININE FOR GFR 0.82 MG/DL (0.70-1.30); GLOMERULAR FILTRATION RATE > 60.0 (>56); GLUCOSE, FASTING 324 MG/DL (70-100); POTASSIUM SERUM 3.4 MEQ/L (3.5-5.1); SODIUM LEVEL 136 MEQ/L (136-145); TOTAL PROTEIN 8.3 GM/DL (6.4-8.2)
== END ==
LOC: M PLALAB 13:52
PROVIDERS: ATTEND Student in an Organized Health Care Education/Training Program
DX: E11.9 Type 2 diabetes mellitus without complications (principal); E87.70 Fluid overload, unspecified

== ENCOUNTER → 2021-04-22 | Outpatient (CLI) | payer OTHER ==
--- NOTE | 2021-04-22 14:15 | REP ---
INDICATION: ABDOMINAL DISTENSION COMPARISON: None. TECHNIQUE: Upright view of the chest with supine and upright views of the abdomen and pelvis. FINDINGS: Upright views demonstrate no obvious free air to suggest bowel perforation. Supine views demonstrate moderately prominent air-filled loops of small bowel suggesting enteritis versus early obstruction and correlation is required. No organomegaly. Skeletal structures are intact. No abnormal calcifications. IMPRESSION: Bowel gas pattern raise the possibility of early obstruction versus enteritis. Correlation is required. <Electronically signed by Rich Craven > 04/22/21 [id number]
== END ==
LOC: M PLAIMG 10:32
PROVIDERS: ATTEND Student in an Organized Health Care Education/Training Program
DX: R14.0 Abdominal distension (gaseous) (principal)

== ENCOUNTER → 2021-04-22 | Outpatient (CLI) | payer OTHER ==
--- NOTE | 2021-04-22 18:21 | REP ---
INDICATION: ABN LFT'S COMPARISON: None. TECHNIQUE: Real time garcia scale ultrasound examination using curved array transducer. FINDINGS: Liver is heterogeneous with increased echotexture and poor through transmission suggesting hepatosteatosis and hepatocellular disease. Subtle mass in the right lobe cannot be excluded. Pancreas is incompletely evaluated due to interposed bowel gas. The gallbladder is normal and without gallstones, wall thickening, or pericholecystic fluid. No obvious biliary ductal dilatation is appreciated. The common bile duct is not identified due to technical factors. Right kidney is normal in reniform shape without hydronephrosis and measures 17.3 x 7.8 x 4.8 cm. No ascites in the visualized right upper quadrant. IMPRESSION: Significantly limited examination. Hepatosteatosis and hepatocellular disease. Cannot exclude mass in the inferior pole of the right hepatic lobe. Consider pre and postcontrast CT of the abdomen for further investigation. <Electronically signed by Rich Craven > 04/22/21 [id number]
== END ==
LOC: M RAD 08:42
PROVIDERS: ATTEND Student in an Organized Health Care Education/Training Program
DX: R94.5 Abnormal results of liver function studies (principal)

== ENCOUNTER → 2021-04-29 | Outpatient (REF) | payer OTHER | LOC: M SFHCPLAZ 14:48 | DX: E11.9 Type 2 diabetes mellitus without complications (principal); R16.0 Hepatomegaly, not elsewhere classified; Z53.9 Procedure and treatment not carried out, unspecified reason ==

== ENCOUNTER → 2021-06-21 | Outpatient (REF) | payer OTHER ==
[2021-06-21 13:51] LABS: ALBUMIN 3.1 GM/DL (3.2-5.2); ALT/SGPT 42 U/L (12-78); BILIRUBIN,TOTAL 0.7 MG/DL (0.2-1.0); BLOOD UREA NITROGEN 7 MG/DL (7-18); CALCIUM LEVEL 9.8 MG/DL (8.5-10.1); CARBON DIOXIDE LEVEL 29 MEQ/L (21-32); CHLORIDE LEVEL 97 MEQ/L (98-107); CREATININE FOR GFR 0.77 MG/DL (0.70-1.30); GLOMERULAR FILTRATION RATE > 60.0 (>56); GLUCOSE, FASTING 173 MG/DL (70-100); IRON (FE) 37 UG/DL (65-175); PERCENT SATURATION 10.9 % (19.7-50.0); POTASSIUM SERUM 3.9 MEQ/L (3.5-5.1); SODIUM LEVEL 134 MEQ/L (136-145); TOTAL IRON BINDING CAPACITY 339 UG/DL (250-450); TOTAL PROTEIN 8.2 GM/DL (6.4-8.2)
[2021-06-21 14:03] LABS: HEMOGLOBIN A1c 7.4 %
[2021-06-21 14:06] LABS: HEPATITIS B SURFACE ANTIGEN NEGATIVE (NEGATIVE)
[2021-06-21 14:32] LABS: HEPATITIS C VIRUS ABY INDEX 0.3 INDEX (<0.8)
[2021-06-21 14:33] LABS: HEPATITIS B CORE ANTIBODY IGM NEGATIVE (NEGATIVE)
== END ==
LOC: M SFHCPLAZ 10:00 → M SFHCADAM 10:01
DX: E11.9 Type 2 diabetes mellitus without complications (principal); R16.0 Hepatomegaly, not elsewhere classified

== ENCOUNTER → 2021-06-23 | Outpatient (CLI) | payer OTHER ==
[~2021-06-23] MED LIST changes: +ISOVUE-370 76% 100ML VIAL As Ordered ONE
--- NOTE | 2021-06-24 08:12 | REP ---
INDICATION: LIVER MASS. COMPARISON: None TECHNIQUE: Axial precontrast, contrast-enhanced, and delayed images of the abdomen using 100 cc Isovue 370 intravenous contrast material. Coronal and sagittal reformations obtained. This CT examination was performed using the following dose reduction techniques: Automated exposure control, adjustment of mA and/or kv according to the patient's size, and the use of iterative reconstruction technique. FINDINGS: Liver is enlarged and demonstrates nodular contour along with moderate amount of perihepatic ascites as well as portosystemic shunting consistent with cirrhosis and portal hypertension. There is a prominent appearance to the caudate and medial right hepatic lobe which demonstrates normal parenchymal enhancement without evidence for discrete mass lesion. No further focal hepatic lesions or abnormalities are identified. Spleen, pancreas, gallbladder, bilateral adrenal glands and kidneys are relatively normal. Visualized portions of the enteric system are grossly unremarkable and without obstruction or acute inflammatory process. Portions of the normal terminal ileum and appendix are identified along with scattered colonic diverticula.. No free air. Upper abdominal adenopathy primarily in the region of the lexi hepatis and gastrohepatic ligament are identified and may be related to underlying cirrhosis. IMPRESSION: 1. Findings as described above likely related to underlying cirrhosis and portal hypertension. 2. No discrete hepatic mass lesion is appreciated. <Electronically signed by Rich Craven > 06/24/21 [id number]
== END ==
LOC: M PLAIMG 06-21 12:32 → M RAD 16:34
PROVIDERS: ATTEND Student in an Organized Health Care Education/Training Program
DX: R16.0 Hepatomegaly, not elsewhere classified (principal)
CPT/HCPCS: 74170; Q9967

== ENCOUNTER → 2021-08-03 | Outpatient (REF) | payer OTHER ==
[~2021-08-03] MED LIST changes: -ISOVUE-370 76% 100ML VIAL As Ordered ONE
== END ==
LOC: M SFHCPLAZ 15:23
PROVIDERS: ATTEND Family Medicine
DX: E11.9 Type 2 diabetes mellitus without complications (principal); Z53.9 Procedure and treatment not carried out, unspecified reason

== ENCOUNTER → 2021-08-10 | Outpatient (CLI) | payer OTHER ==
--- NOTE | 2021-08-10 18:01 | REPVR ---
PROCEDURE INFORMATION: Exam: MR Cervical Spine Without Contrast Exam date and time: 08/10/2021 10:50 AM Age: 51 years old Clinical indication: Neck pain; Additional info: Pain in santana arms, neck pain TECHNIQUE: Imaging protocol: Multiplanar magnetic resonance images of the cervical spine without contrast. COMPARISON: CR SPINE CERVICAL COMPL 07/15/2016 5:32 PM FINDINGS: Cervical vertebral body heights are intact. Cervical lordosis is maintained. The dens is intact. Disc space heights are unremarkable. No abnormal marrow signal. Small central spinal cord syrinx starting at approximately the C7 level and extending inferiorly into the thoracic spinal cord, measuring up to 1 mm in diameter. No cord compression or expansion. Visualized structures of the posterior fossa are unremarkable. No significant areas of canal or foraminal narrowing. Soft tissues are unremarkable. IMPRESSION: 1. No acute findings in the cervical spine. 2. Small central spinal cord syrinx starting at approximately the C7 level and extending inferiorly into the thoracic spinal cord, measuring up to 1 mm in diameter. Electronically signed by: Shaw Kim On 08/10/2021 18:00:21 PM
== END ==
LOC: M PLAIMG 09:48
PROVIDERS: ATTEND Physician Assistant
DX: R20.2 Paresthesia of skin (principal); M79.601 Pain in right arm; M79.602 Pain in left arm; M54.2 Cervicalgia; G95.0 Syringomyelia and syringobulbia

== ENCOUNTER → 2022-02-14 | Outpatient (CLI) | payer OTHER ==
[~2022-02-14] MED LIST changes: +ATOR40TA75 PO; +DULA3PEN SQ; +FURO40TA2 PO; +LOSA100T45; +LOSA100T45 PO; -LOSA100T50; -LOSA100T50 PO; +SPIR-10 PO
== END ==
LOC: M LABSMTC 09:47
PROVIDERS: ATTEND Anesthesiology
DX: Z11.52 Encounter for screening for COVID-19 (principal); Z20.822 Contact with and (suspected) exposure to COVID-19

== ENCOUNTER 2022-02-18 06:42 | Day surgery (SDC) | payer OTHER ==
[~2022-02-18] VITALS: Ht 180.3 cm; Wt 126.1 kg
[~2022-02-18 06:42] MED LIST changes: +NS 1,000 ML IV ONE
[2022-02-18] MEDS ORDERED: propofoL 500 MG/50 ML VIAL As Ordered ONE (07:09)
[2022-02-18] MEDS ORDERED: propofoL 200 MG/20 ML VIAL As Ordered ONE ×2 (07:11→09:07)
[2022-02-18] MEDS ORDERED: fentaNYL 100 MCG/2 ML INJECTION As Ordered ONE (07:11)
[2022-02-18] MEDS ORDERED: LIDOCAINE 2% INJ 100 MG/5 ML SYRINGE As Ordered ONE (08:51)
[2022-02-18] MEDS ORDERED: GLYCOPYRROLATE INJ 0.2 MG/ML 2 ML VIAL As Ordered ONE (09:07)
[2022-02-18 09:54] VITALS: BP 135/65
== END 2022-02-18 09:55 | disposition home or self-care (01) ==
LOC: M OPP 06:42
PROVIDERS: ATTEND Internal Medicine Gastroenterology
DX: K57.30 Diverticulosis of large intestine without perforation or abscess without bleeding (principal); D12.3 Benign neoplasm of transverse colon; K63.5 Polyp of colon; K63.89 Other specified diseases of intestine; K92.1 Melena; K74.60 Unspecified cirrhosis of liver; K29.80 Duodenitis without bleeding; K29.70 Gastritis, unspecified, without bleeding; K20.90 Esophagitis, unspecified without bleeding; Z79.01 Long term (current) use of anticoagulants; Z79.02 Long term (current) use of antithrombotics/antiplatelets; Z79.1 Long term (current) use of non-steroidal anti-inflammatories (NSAID); Z79.84 Long term (current) use of oral hypoglycemic drugs; Z79.899 Other long term (current) drug therapy; Z88.6 Allergy status to analgesic agent; Z88.8 Allergy status to other drugs, medicaments and biological substances; I87.2 Venous insufficiency (chronic) (peripheral); G47.33 Obstructive sleep apnea (adult) (pediatric); F17.210 Nicotine dependence, cigarettes, uncomplicated; Z99.89 Dependence on other enabling machines and devices
CPT/HCPCS: 43239; 45385; 88305; 88312; 88342; J3010

== ENCOUNTER → 2022-03-15 | Outpatient (CLI) | payer OTHER ==
[~2022-03-15] MED LIST changes: -NS 1,000 ML IV ONE
[2022-03-15 16:43] LABS: BASO # 0.1 10^3/uL (0.0-0.2); BASO % 1.1 % (0.0-1.0); EOS # 0.2 10^3/uL (0.0-0.5); EOS % 2.6 % (0.0-3.0); HEMATOCRIT 43.7 % (42.0-52.0); HEMOGLOBIN 14.7 g/dl (13.5-17.5); LYMPH # 1.9 10^3/uL (1.5-5.0); MEAN CORPUSCULAR HEMOGLOBIN 29.8 pg (27.0-33.0); MEAN CORPUSCULAR HGB CONC 33.6 g/dl (32.0-36.5); MEAN CORPUSCULAR VOLUME 88.6 fl (80.0-96.0); MONO # 1.1 10^3/uL (0.0-0.8); MONO % 12.4 % (2.0-8.0); NEUTROPHILS # 5.7 10^3/uL (1.5-8.5); NEUTROPHILS % 62.5 % (36.0-66.0); PLATELET COUNT, AUTOMATED 297 10^3/uL (150-450); RED BLOOD COUNT 4.93 10^6/uL (4.30-6.10); WHITE BLOOD COUNT 9.1 10^3/uL (4.0-10.0)
[2022-03-15 17:33] LABS: INR 1.47; PROTHROMBIN TIME 18.3 SECONDS (12.7-14.5)
[2022-03-15 22:05] LABS: ALBUMIN 3.7 GM/DL (3.2-5.2); ALT/SGPT 63 U/L (12-78); BILIRUBIN,DIRECT 0.4 MG/DL (0.0-0.2); BILIRUBIN,TOTAL 1.1 MG/DL (0.2-1.0); BLOOD UREA NITROGEN 13 MG/DL (7-18); CARBON DIOXIDE LEVEL 29 MEQ/L (21-32); CHLORIDE LEVEL 90 MEQ/L (98-107); GLOMERULAR FILTRATION RATE > 60.0 (>56); GLUCOSE, FASTING 399 MG/DL (70-100); HEPATITIS B CORE ANTIBODY IGM NEGATIVE (NEGATIVE); HEPATITIS B SURFACE ANTIGEN NEGATIVE (NEGATIVE); HEPATITIS C VIRUS ABY INDEX 0.2 INDEX (<0.8); IRON (FE) 78 UG/DL (65-175); PERCENT SATURATION 22.7 % (19.7-50.0); POTASSIUM SERUM 4.6 MEQ/L (3.5-5.1); SODIUM LEVEL 127 MEQ/L (136-145); TOTAL IRON BINDING CAPACITY 343 UG/DL (250-450); TOTAL PROTEIN 9.4 GM/DL (6.4-8.2)
== END ==
LOC: M ADAMS 14:29
PROVIDERS: ATTEND Internal Medicine Gastroenterology
DX: K74.60 Unspecified cirrhosis of liver (principal)

== ENCOUNTER → 2022-03-21 | Outpatient (REF) | payer OTHER ==
[2022-03-23 14:08] LABS: LDL DIRECT 23 mg/dL (0-99)
== END ==
LOC: M LAB REF 16:00
PROVIDERS: ATTEND Physician Assistant Medical
DX: E78.00 Pure hypercholesterolemia, unspecified (principal)

== ENCOUNTER → 2022-08-05 | Outpatient (REF) | payer OTHER ==
[2022-08-05 17:41] LABS: HEMOGLOBIN A1c 13.9 % (4.0-6.0)
== END ==
LOC: M LAB REF 16:11
PROVIDERS: ATTEND Physician Assistant Medical
DX: E11.40 Type 2 diabetes mellitus with diabetic neuropathy, unspecified (principal)

== ENCOUNTER → 2023-01-09 | Outpatient (REF) | payer OTHER ==
[~2023-01-09] MED LIST changes: +DIPH-435 PO; -DIPH25CA32 PO; -LOSA100T45; -LOSA100T45 PO; +LOSA100T46; +LOSA100T46 PO
[2023-01-09 18:51] LABS: EOSINOPHILS 1 % (0-3); LYMPHOCYTES 8 % (16-44); MONOCYTES 13 % (0-5); NEUTROPHILS 78 % (28-66); PLATELET ESTIMATE NORMAL (NORMAL)
== END ==
LOC: M LAB REF 16:54
PROVIDERS: ATTEND Physician Assistant Medical
DX: D72.9 Disorder of white blood cells, unspecified (principal); G60.3 Idiopathic progressive neuropathy

== ENCOUNTER → 2023-03-24 | Outpatient (CLI) | payer OTHER ==
[~2023-03-24] MED LIST changes: +GASTROGRAFIN SOLUTION 30ML As Ordered ONE; +ISOVUE-370 76% 100ML VIAL As Ordered ONE
== END ==
LOC: M RAD 06:56
PROVIDERS: ATTEND Physician Assistant Medical
DX: G60.3 Idiopathic progressive neuropathy (principal); R16.0 Hepatomegaly, not elsewhere classified; R18.8 Other ascites; R59.0 Localized enlarged lymph nodes; K57.90 Diverticulosis of intestine, part unspecified, without perforation or abscess without bleeding; Q63.2 Ectopic kidney; I70.0 Atherosclerosis of aorta; I25.10 Atherosclerotic heart disease of native coronary artery without angina pectoris; J84.9 Interstitial pulmonary disease, unspecified
CPT/HCPCS: 71260; 74177; Q9963; Q9967

== ENCOUNTER → 2023-04-04 | Outpatient (REF) | payer OTHER ==
[~2023-04-04] MED LIST changes: -GASTROGRAFIN SOLUTION 30ML As Ordered ONE; -ISOVUE-370 76% 100ML VIAL As Ordered ONE
[2023-04-04 19:20] LABS: BASO # 0.1 10^3/uL (0.0-0.2); BASO % 1.4 % (0.0-1.0); EOS # 0.1 10^3/uL (0.0-0.5); EOS % 2.4 % (0.0-3.0); HEMATOCRIT 38.1 % (42.0-52.0); LYMPH # 0.7 10^3/uL (1.5-5.0); LYMPH % 13.1 % (24.0-44.0); MEAN CORPUSCULAR HEMOGLOBIN 27.1 pg (27.0-33.0); MEAN CORPUSCULAR HGB CONC 31.5 g/dl (32.0-36.5); MONO # 0.9 10^3/uL (0.0-0.8); NEUTROPHILS # 3.3 10^3/uL (1.5-8.5); NEUTROPHILS % 64.7 % (36.0-66.0); PLATELET COUNT, AUTOMATED 257 10^3/uL (150-450); RED BLOOD COUNT 4.43 10^6/uL (4.30-6.10); WHITE BLOOD COUNT 5.1 10^3/uL (4.0-10.0)
[2023-04-04 19:24] LABS: CPK CREATINE PHOSPHOKINASE 63 U/L (46-171)
[2023-04-04 19:42] LABS: ERYTHROCYTE SEDIMENTATION RATE 79 mm/hr (0-20)
[2023-04-04 19:47] LABS: TOTAL PROTEIN,RANDOM URINE 14.5 MG/DL (0.0-14.0)
[2023-04-04 19:52] LABS: CREATININE,RANDOM URINE 17.4 MG/DL
[2023-04-04 19:57] LABS: HEPATITIS B SURFACE ANTIBODY NEGATIVE (POSITIVE)
[2023-04-04 20:21] LABS: HEMOGLOBIN A1c > 14.0 % (4.0-6.0)
[2023-04-04 20:29] LABS: HEPATITIS B CORE ANTIBODY IGM NEGATIVE (NEGATIVE)
== END ==
LOC: M LABDRWAD 18:18
DX: G58.7 Mononeuritis multiplex (principal)

== ENCOUNTER → 2023-04-14 | Outpatient (CLI) | payer OTHER ==
[~2023-04-14] MED LIST changes: +ISOVUE-370 76% 100ML VIAL As Ordered ONE
== END ==
LOC: M RAD 14:31
PROVIDERS: ATTEND Physician Assistant Medical
DX: G60.3 Idiopathic progressive neuropathy (principal); R18.8 Other ascites; R16.1 Splenomegaly, not elsewhere classified; K57.30 Diverticulosis of large intestine without perforation or abscess without bleeding
CPT/HCPCS: 74174; Q9967

== ENCOUNTER → 2023-05-17 | Outpatient (REF) | payer OTHER ==
[~2023-05-17] MED LIST changes: -ISOVUE-370 76% 100ML VIAL As Ordered ONE
[2023-05-17 17:18] LABS: PERCENT SATURATION 10.2 % (19.7-50.0)
[2023-05-17 17:22] LABS: FERRITIN 68.7 NG/ML (10.5-307.3)
[2023-05-18 12:37] LABS: HEMOGLOBIN A1c > 14.0 % (4.0-6.0)
== END ==
LOC: M LAB REF 16:19
PROVIDERS: ATTEND Physician Assistant Medical
DX: E11.65 Type 2 diabetes mellitus with hyperglycemia (principal); G62.89 Other specified polyneuropathies; G60.8 Other hereditary and idiopathic neuropathies

== ENCOUNTER → 2023-07-27 | Outpatient (CLI) | payer OTHER ==
[~2023-07-27] MED LIST changes: +PROHANCE 279.3MG/ML 15ML VIAL As Ordered ONE; +PROHANCE 279.3MG/ML 5ML VIAL As Ordered ONE
== END ==
LOC: M RAD 15:36
PROVIDERS: ATTEND Psychiatry & Neurology Neurology
DX: G58.7 Mononeuritis multiplex (principal)
CPT/HCPCS: 72197; A9576

== ENCOUNTER → 2023-08-09 | Outpatient (REF) | payer OTHER ==
[~2023-08-09] MED LIST changes: -PROHANCE 279.3MG/ML 15ML VIAL As Ordered ONE; -PROHANCE 279.3MG/ML 5ML VIAL As Ordered ONE
== END ==
LOC: M ADAMS 14:23
PROVIDERS: ATTEND Internal Medicine
DX: M47.816 Spondylosis without myelopathy or radiculopathy, lumbar region (principal)

== ENCOUNTER → 2024-01-19 | Outpatient (REF) | payer OTHER | LOC: M LAB REF 16:30 | PROVIDERS: ATTEND Physician Assistant Medical | DX: N18.30 Chronic kidney disease, stage 3 unspecified (principal); G62.89 Other specified polyneuropathies ==

== ENCOUNTER → 2024-03-05 | Outpatient (REF) | payer OTHER ==
[2024-03-05 18:57] LABS: C REACTIVE PROTEIN QUANTITATIV < 0.40 MG/DL (<1.0); FERRITIN 24.5 NG/ML (10.5-307.3)
[2024-03-05 18:58] LABS: IRON (FE) 21 UG/DL (65-175); PERCENT SATURATION 5.7 % (19.7-50.0); TOTAL IRON BINDING CAPACITY 371 UG/DL (250-425)
[2024-03-05 19:00] LABS: FOLATE 7.1 NG/ML (>5.4); VITAMIN B12 LEVEL 312 PG/ML (211-911)
== END ==
LOC: M LAB REF 16:43
PROVIDERS: ATTEND Physician Assistant Medical
DX: D51.9 Vitamin B12 deficiency anemia, unspecified (principal); G62.89 Other specified polyneuropathies; R53.83 Other fatigue

== ENCOUNTER → 2024-06-18 | Outpatient (REF) | payer OTHER ==
[2024-06-18 18:31] LABS: HEMATOCRIT 30.5 % (42.0-52.0); HEMOGLOBIN 8.2 g/dl (13.5-17.5); MEAN CORPUSCULAR HEMOGLOBIN 20.8 pg (27.0-33.0); MEAN CORPUSCULAR HGB CONC 26.9 g/dl (32.0-36.5); MEAN CORPUSCULAR VOLUME 77.4 fl (80.0-96.0); PLATELET COUNT, AUTOMATED 565 10^3/uL (150-450); RED BLOOD COUNT 3.94 10^6/uL (4.30-6.10)
[2024-06-18 18:43] LABS: ALBUMIN 2.2 G/DL (3.2-5.2); ALKALINE PHOSPHATASE 97 U/L (40-129); ALT/SGPT 12 U/L (7.0-40); AST/SGOT 28 U/L (<34); BILIRUBIN,TOTAL 0.4 MG/DL (0.3-1.2); BLOOD UREA NITROGEN 9 MG/DL (9-23); CALCIUM LEVEL 8.5 MG/DL (8.5-10.1); CARBON DIOXIDE LEVEL 30 MMOL/L (20-31); CHLORIDE LEVEL 105 MMOL/L (98-107); CPK CREATINE PHOSPHOKINASE 34 U/L (46-171); CREATININE FOR GFR 1.14 MG/DL (0.70-1.30); GLOMERULAR FILTRATION RATE > 60.0 (>56); GLUCOSE, FASTING 184 MG/DL (60-100); POTASSIUM SERUM 3.3 MMOL/L (3.5-5.1); SODIUM LEVEL 141 MMOL/L (136-145); TOTAL PROTEIN 7.2 G/DL (5.7-8.2)
[2024-06-18 18:52] LABS: ERYTHROCYTE SEDIMENTATION RATE 96 mm/hr (0-20)
== END ==
LOC: M LAB REF 17:31
PROVIDERS: ATTEND Emergency Medicine Emergency Medical Services
DX: G61.81 Chronic inflammatory demyelinating polyneuritis (principal)

== ENCOUNTER → 2024-08-14 | Outpatient (REF) | payer OTHER ==
[2024-08-15 14:38] LABS: PERCENT SATURATION 3.2 % (19.7-50.0)
[2024-08-15 14:41] LABS: FERRITIN 22.2 NG/ML (10.5-307.3)
== END ==
LOC: M LAB REF 13:41
PROVIDERS: ATTEND Physician Assistant Medical
DX: D51.9 Vitamin B12 deficiency anemia, unspecified (principal); D50.9 Iron deficiency anemia, unspecified

== ENCOUNTER → 2024-12-03 | Outpatient (REF) | payer OTHER ==
[2024-12-03 19:19] LABS: PERCENT SATURATION 29.9 % (19.7-50.0)
[2024-12-03 19:20] LABS: FERRITIN 69.3 NG/ML (10.5-307.3)
== END ==
LOC: M LAB REF 17:22
PROVIDERS: ATTEND Physician Assistant Medical
DX: D51.9 Vitamin B12 deficiency anemia, unspecified (principal); N18.30 Chronic kidney disease, stage 3 unspecified

== ENCOUNTER → 2024-12-16 | Outpatient (REF) | payer OTHER ==
[2024-12-16 20:49] LABS: ATYPICAL LYMPH 2 % (0-5); BASOPHILS 2 % (0-1); EOSINOPHILS 6 % (0-3); LYMPHOCYTES 5 % (16-44); MONOCYTES 9 % (0-5); NEUTROPHILS 76 % (28-66)
[2024-12-16 20:51] LABS: PLATELET CLUMPS SMALL AMT; PLATELET ESTIMATE NORMAL (NORMAL)
== END ==
LOC: M LAB REF 17:16
PROVIDERS: ATTEND Internal Medicine
DX: D72.9 Disorder of white blood cells, unspecified (principal)

== ENCOUNTER → 2024-12-18 | Outpatient (CLI) | payer OTHER | LOC: M PLAIMG 13:37 | PROVIDERS: ATTEND Physician Assistant Medical | DX: M50.21 Other cervical disc displacement, high cervical region (principal); M50.221 Other cervical disc displacement at C4-C5 level; R06.02 Shortness of breath; M50.222 Other cervical disc displacement at C5-C6 level; M50.223 Other cervical disc displacement at C6-C7 level; J98.11 Atelectasis ==

== ENCOUNTER → 2024-12-19 | Outpatient (REF) | payer OTHER ==
[2024-12-19 20:02] LABS: ANISOCYTOSIS 1+; BASOPHILS 1 % (0-1); LYMPHOCYTES 1 % (16-44); MONOCYTES 4 % (0-5); NEUTROPHILS 94 % (28-66); PLATELET ESTIMATE NORMAL (NORMAL)
== END ==
LOC: M LAB REF 17:37
PROVIDERS: ATTEND Internal Medicine
DX: D72.9 Disorder of white blood cells, unspecified (principal)